=== PATIENT | female | born 1940 | race Hispanic/Latino ===

== ENCOUNTER 2022-12-04 11:51 | Emergency (ER) | payer OTHER, MEDICARE ==
[~2022-12-04] VITALS: Ht 157.5 cm; Wt 36.3 kg
[2022-12-04 14:45] VITALS: BP 178/63; PULSE 70; RESP 18; O2SAT 97
== END 2022-12-04 15:20 | disposition home or self-care (01) ==
LOC: EDH 11:51
DX: S82.225A Nondisplaced transverse fracture of shaft of left tibia, initial encounter for closed fracture (principal); E78.00 Pure hypercholesterolemia, unspecified; I10 Essential (primary) hypertension; W18.39XA Other fall on same level, initial encounter; Y93.89 Activity, other specified; Y92.89 Other specified places as the place of occurrence of the external cause; Y99.8 Other external cause status
CPT/HCPCS: 29515; 70450; 71046; 72125; 73522